=== PATIENT | male | born 1990 | race Asian ===

== ENCOUNTER 2018-11-30 00:28 | Emergency (ER) | payer SELFPAY ==
[~2018-11-30] VITALS: Ht 182.9 cm; Wt 177.0 kg
[2018-11-30] MEDS ORDERED: HYDROCODONE/ACETAMINOPHEN 5/325MG TABLET PO ONE (01:45)
[2018-11-30 03:40] VITALS: BP 142/75
== END 2018-11-30 04:17 | disposition home or self-care (01) ==
LOC: ER 00:28
DX: S70.12XA Contusion of left thigh, initial encounter (principal); S09.8XXA Other specified injuries of head, initial encounter; V43.52XA Car driver injured in collision with other type car in traffic accident, initial encounter; Y93.89 Activity, other specified; Y92.488 Other paved roadways as the place of occurrence of the external cause
CPT/HCPCS: 73552; 99284